=== PATIENT | male | born 1930 | race Caucasian/White ===

== ENCOUNTER 2016-03-08 18:10 | Emergency (ER) | payer MEDICARE, OTHER ==
[~2016-03-08] VITALS: Ht 170.2 cm; Wt 100.9 kg
[~2016-03-08 18:10] MED LIST: ASPIR-LOW81 MG PO; ASPIRIN 32325 MG/TAB PO; ASPIRIN E.C. 8181 MG PO; BACTRIM DS 8001 TAB PO; BETAPACE 80MG80 MG PO; CARBIDOPA/LEVODOPA; CIPRO 500MG TA500 MG PO; COUMADIN 5MG5 MG/TAB PO; COUMADIN2.5 MG PO; COUMADIN5 MG PO; FLOMAX 0.40.4 MG/CAP PO; HCTZ 25MG25 MG PO; IMODIUM 2MG CAPS2 MG PO; KLOR-CON M2020 MEQ PO; LASIX 20MG TABL20 MG PO; LEVAQUIN 5500 MG/TA1 PO; LIPITOR 10MG10 MG PO; LIPITOR 40MG TA40 MG PO; LOPRESSOR 225 MG/TAB PO; MECLIZINE25 MG PO; MIRALAX PA17 GM/Dose PO; NORVASC 10MG10 MG PO; PHENERGAN W/CO120 M1 PO; PHENERGAN W/CO120 ML PO; PRILOSEC 20MG20 MG; PRILOSEC 20MG20 MG PO; SINEMET CR 50 M1 TER PO; TOPROL XL 25MG25 MG PO; TYLENOL 325MG325 MG PO; ULTRAM 50MG TAB50 MG PO; ZOLOFT 50MG50 MG PO
[2016-03-08 18:16] VITALS: TEMP 98
[2016-03-08 19:38] LABS: BASO # 0.1 (0.0-0.2); BASO % 0.7 % (0.0-2.0); EOS # 0.4 (0.0-0.7); EOS % 6.1 % (0-4.0); GRAN # 4.3 (1.4-6.5); GRAN % 64.8 % (42.2-75.2); HEMATOCRIT 42.5 % (42.0-52.0); HEMOGLOBIN 13.8 g/dl (13.5-18.0); LYMPH # 1.4 (1.2-3.4); LYMPH % 20.2 % (20.0-51.0); MEAN CELL VOLUME 87 fl (80.0-100.0); MEAN CORPUSCULAR HEMOGLOBIN 28 pg (27.0-31.0); MEAN CORPUSCULAR HGB CONC 33 g/dl (33.0-37.0); MEAN PLATELET VOLUME 10.9 fl (7.4-10.4); MONO # 0.5 (0.1-0.6); MONO % 7.8 % (1.7-9.3); PLATELET COUNT 227 K/mm3 (130-400); RED BLOOD COUNT 4.87 M/mm3 (4.20-5.60); REDCELL DISTRIBUTION WIDTH-CV 14.6 % (11.5-14.5); WHITE BLOOD COUNT 6.7 K/mm3 (4.8-10.8)
[2016-03-08 19:48] LABS: ALBUMIN 4.5 gm/dL (3.5-5.0); BILIRUBIN,TOTAL 0.7 mg/dL (0.0-1.0); CALCIUM 9.4 mg/dL (8.4-10.2); CREATININE, serum 1.77 mg/dL (0.66-1.25); POTASSIUM 3.6 mmol/L (3.4-5.0); TOTAL PROTEIN 7.8 gm/dL (6.4-8.2)
[2016-03-08 20:18] VITALS: BP 131/57; PULSE 87
== END 2016-03-08 20:19 | disposition home or self-care (01) ==
LOC: COL.ER 18:10
PROVIDERS: Emergency Medicine
DX: L29.9 Pruritus, unspecified (principal); I10 Essential (primary) hypertension

== ENCOUNTER 2016-11-07 12:03 | Emergency (ER) | payer MEDICARE, OTHER ==
[~2016-11-07] VITALS: Ht 170.2 cm; Wt 93.2 kg
[2016-11-07 12:05] VITALS: TEMP 98.4
[2016-11-07 12:58] LABS: BASO % 0.5 % (0.0-2.0); EOS # 0.4 (0.0-0.7); EOS % 5.8 % (0-4.0); GRAN # 4.7 (1.4-6.5); GRAN % 73.1 % (42.2-75.2); HEMATOCRIT 39.1 % (42.0-52.0); HEMOGLOBIN 12.9 g/dl (13.5-18.0); LYMPH # 0.8 (1.2-3.4); LYMPH % 12.6 % (20.0-51.0); MEAN CELL VOLUME 89 fl (80.0-100.0); MEAN CORPUSCULAR HEMOGLOBIN 29 pg (27.0-31.0); MEAN CORPUSCULAR HGB CONC 33 g/dl (33.0-37.0); MEAN PLATELET VOLUME 10.8 fl (7.4-10.4); MONO # 0.5 (0.1-0.6); MONO % 7.5 % (1.7-9.3); PLATELET COUNT 173 K/mm3 (130-400); REDCELL DISTRIBUTION WIDTH-CV 13.3 % (11.5-14.5); WHITE BLOOD COUNT 6.4 K/mm3 (4.8-10.8)
[2016-11-07] MEDS ORDERED: RYTARY1 CE2 PO (13:05)
[2016-11-07] MEDS ORDERED: CIPRO 500MG TA500 MG PO (13:08)
[2016-11-07] MEDS ORDERED: TYLENOL PM EXTR1 TA1 PO (13:10)
[2016-11-07 13:11] LABS: INR 1.1 (0.8-3.0); PROTHROMBIN TIME 12.1 SECONDS (9.7-12.8)
[2016-11-07] MEDS ORDERED: COLACE 100100 MG/CAP PO (13:11)
[2016-11-07 13:12] LABS: ALBUMIN 3.7 gm/dL (3.5-5.0); BILIRUBIN,TOTAL 0.7 mg/dL (0.0-1.0); C-REACTIVE PROTEIN 4.8 mg/dL (0.0-0.9); CALCIUM 8.8 mg/dL (8.4-10.2); CREATININE, serum 1.64 mg/dL (0.66-1.25); POTASSIUM 3.4 mmol/L (3.4-5.0); TOTAL PROTEIN 6.8 gm/dL (6.4-8.2)
[2016-11-07] MEDS ORDERED: NEURONTIN100 MG/CAP PO (13:12)
[2016-11-07] MEDS ORDERED: KLOR-CON M2020 MEQ PO (13:13)
[2016-11-07 13:14] LABS: PARTIAL THROMBOPLASTIN TIME 30.8 SECONDS (26.0-37.0)
[2016-11-07] MEDS ORDERED: MOBIC15 MG PO (13:14)
[2016-11-07] MEDS ORDERED: FLOMAX 0.40.4 MG/CAP PO (13:15)
[2016-11-07] MEDS ORDERED: LEVITRA10 MG PO (13:16)
[2016-11-07 13:20] LABS: TROPONIN-I 0.019 ng/mL (0.000-0.034)
[2016-11-07] MEDS ORDERED: ZITHROMAX 250M250 MG PO (13:43)
[2016-11-07] MEDS ORDERED: PREDNISONE20 MG PO (13:43)
[2016-11-07 13:54] VITALS: BP 122/73; PULSE 83
== END 2016-11-07 14:04 | disposition home or self-care (01) ==
LOC: COL.ER 12:03
PROVIDERS: Emergency Medicine
DX: J45.909 Unspecified asthma, uncomplicated (principal); I48.91 Unspecified atrial fibrillation; I11.0 Hypertensive heart disease with heart failure; I50.9 Heart failure, unspecified; I25.10 Atherosclerotic heart disease of native coronary artery without angina pectoris; E78.5 Hyperlipidemia, unspecified; G20 Parkinson's disease; N40.0 Benign prostatic hyperplasia without lower urinary tract symptoms; Z95.5 Presence of coronary angioplasty implant and graft; Z87.820 Personal history of traumatic brain injury; Z79.82 Long term (current) use of aspirin
CPT/HCPCS: J7512

== ENCOUNTER 2019-03-25 12:19 | Inpatient (IN) | payer MEDICARE, OTHER ==
[~2019-03-25] VITALS: Ht 167.6 cm; Wt 89.6 kg
[~2019-03-25 12:19] MED LIST changes: +COLACE 100100 MG/CAP PO; +LEVITRA10 MG PO; +MOBIC15 MG PO; +NEURONTIN100 MG/CAP PO; +PREDNISONE20 MG PO; +RYTARY1 CE2 PO; +TYLENOL PM EXTR1 TA1 PO; +ZITHROMAX 250M250 MG PO
[2019-03-25 13:35] LABS: BASO % 0.3 % (0.0-2.0); EOS # 0.4 (0.0-0.7); EOS % 3.2 % (0-4.0); GRAN # 9.1 (1.4-6.5); GRAN % 82.9 % (42.2-75.2); HEMOGLOBIN 11.8 g/dl (13.5-18.0); LYMPH # 0.8 (1.2-3.4); LYMPH % 7.2 % (20.0-51.0); MEAN CELL VOLUME 93 fl (80.0-100.0); MEAN CORPUSCULAR HEMOGLOBIN 29 pg (27.0-31.0); MEAN CORPUSCULAR HGB CONC 31 g/dl (33.0-37.0); MEAN PLATELET VOLUME 10.9 fl (7.4-10.4); MONO # 0.7 (0.1-0.6); MONO % 6.1 % (1.7-9.3); PLATELET COUNT 183 K/mm3 (130-400); RED BLOOD COUNT 4.11 M/mm3 (4.20-5.60); REDCELL DISTRIBUTION WIDTH-CV 13.7 % (11.5-14.5)
[2019-03-25 13:40] LABS: INR 1.1 (0.8-3.0); PROTHROMBIN TIME 12.3 SECONDS (9.7-12.8)
[2019-03-25 13:42] LABS: PARTIAL THROMBOPLASTIN TIME 34.8 SECONDS (26.0-37.0)
[2019-03-25 13:45] LABS: ALBUMIN 3.9 gm/dL (3.5-5.0); BILIRUBIN,TOTAL 0.8 mg/dL (0.0-1.0); CALCIUM 8.9 mg/dL (8.4-10.2); CREATININE, serum 1.59 (0.66-1.25); TOTAL PROTEIN 6.8 gm/dL (6.4-8.2)
[2019-03-25] MEDS ORDERED: NEURONTIN300 MG/CAP PO (17:17)
[2019-03-25] MEDS ORDERED: PROAIR HFA0.09 MG/AC IH (17:18)
[2019-03-25 17:20] VITALS: BP 126/60; PULSE 78; TEMP 97.7
[2019-03-25] MEDS ORDERED: MYRBETR25MG PO (17:21)
[2019-03-25] MEDS ORDERED: WESTCORT 0.2% C15 GM TP (17:21)
[2019-03-25] MEDS ORDERED: TOPAMAX50 MG PO (17:25)
[2019-03-25] MEDS ORDERED: ULTRAM 50MG TAB50 MG PO (17:26)
[2019-03-25 20:00] VITALS: BP 111/60; PULSE 90; TEMP 97.5
[2019-03-25 23:23] VITALS: BP 130/87; PULSE 81; TEMP 98
[2019-03-26] VITALS (10 sets, daily range): BP systolic 96–118; BP diastolic 48–83; PULSE 85–103; TEMP 97–98.4
[2019-03-26 06:38] LABS: BASO % 0.3 % (0.0-2.0); EOS # 0.7 (0.0-0.7); EOS % 6.9 % (0-4.0); GRAN # 7.8 (1.4-6.5); GRAN % 80.1 % (42.2-75.2); HEMOGLOBIN 10.7 g/dl (13.5-18.0); LYMPH # 0.7 (1.2-3.4); LYMPH % 7.4 % (20.0-51.0); MEAN CELL VOLUME 92 fl (80.0-100.0); MEAN CORPUSCULAR HEMOGLOBIN 29 pg (27.0-31.0); MEAN CORPUSCULAR HGB CONC 32 g/dl (33.0-37.0); MEAN PLATELET VOLUME 11.7 fl (7.4-10.4); MONO # 0.5 (0.1-0.6); PLATELET COUNT 153 K/mm3 (130-400); RED BLOOD COUNT 3.66 M/mm3 (4.20-5.60); REDCELL DISTRIBUTION WIDTH-CV 13.5 % (11.5-14.5)
[2019-03-26 06:47] LABS: HEMATOCRIT 33.7 % (42.0-52.0)
[2019-03-26 06:53] LABS: CALCIUM 8.4 mg/dL (8.4-10.2); CREATININE, serum 1.52 (0.66-1.25); POTASSIUM 3.9 mmol/L (3.4-5.0)
[2019-03-27] VITALS (7 sets, daily range): BP systolic 108–117; BP diastolic 47–82; PULSE 82–94; TEMP 97.6–98.8
[2019-03-27 07:08] LABS: HEMATOCRIT 27.2 % (42.0-52.0); HEMOGLOBIN 8.5 g/dl (13.5-18.0)
[2019-03-27 07:17] LABS: CALCIUM 8.1 mg/dL (8.4-10.2); CREATININE, serum 1.38 (0.66-1.25)
[2019-03-28 04:46] VITALS: BP 96/42; PULSE 83; TEMP 98.8
[2019-03-28 04:50] VITALS: BP 101/42
[2019-03-28 07:23] VITALS: BP 120/68; PULSE 89; TEMP 98.2
[2019-03-28 07:40] LABS: BASO % 0.4 % (0.0-2.0); EOS # 0.6 (0.0-0.7); EOS % 7.2 % (0-4.0); GRAN % 71.2 % (42.2-75.2); LYMPH # 1.2 (1.2-3.4); LYMPH % 13.8 % (20.0-51.0); MEAN CELL VOLUME 90 fl (80.0-100.0); MEAN CORPUSCULAR HGB CONC 32 g/dl (33.0-37.0); MEAN PLATELET VOLUME 12.1 fl (7.4-10.4); MONO # 0.6 (0.1-0.6); MONO % 6.7 % (1.7-9.3); PLATELET COUNT 127 K/mm3 (130-400); RED BLOOD COUNT 2.72 M/mm3 (4.20-5.60); REDCELL DISTRIBUTION WIDTH-CV 13.6 % (11.5-14.5)
[2019-03-28 07:54] LABS: HEMATOCRIT 24.5 % (42.0-52.0); HEMOGLOBIN 7.8 g/dl (13.5-18.0); MEAN CORPUSCULAR HEMOGLOBIN 29 pg (27.0-31.0)
[2019-03-28 07:57] LABS: CALCIUM 8.1 mg/dL (8.4-10.2); CREATININE, serum 1.38 (0.66-1.25); POTASSIUM 3.5 mmol/L (3.4-5.0)
[2019-03-28] MEDS ORDERED: FERRO-TIME325 MG PO (10:13)
[2019-03-28] MEDS ORDERED: NORCO 325 MG-51 TAB PO (10:14)
[2019-03-28] MEDS ORDERED: DUO-KAPS1 CAP PO (10:16)
[2019-03-28] MEDS ORDERED: VITAMIN C500 MG PO (10:16)
[2019-03-28] MEDS ORDERED: OSCAL 500 TAB500 MG PO (10:17)
[2019-03-28 10:46] VITALS: BP 120/68; PULSE 89; TEMP 98.2
== END 2019-03-28 11:52 | DRG 470 ==
LOC: COL.ER 12:19 → SURG 15:20
PROVIDERS: Emergency Medicine; Orthopaedic Surgery; Physician Assistant; ADMIT Student in an Organized Health Care Education/Training Program
PROC: 0SR90JZ Replacement of Right Hip Joint with Synthetic Substitute, Open Approach (ICD-10-PCS; principal; 2019-03-26 10:00)
DX: S72.001A Fracture of unspecified part of neck of right femur, initial encounter for closed fracture (principal); Z96.653 Presence of artificial knee joint, bilateral; E78.5 Hyperlipidemia, unspecified; I48.91 Unspecified atrial fibrillation; I25.10 Atherosclerotic heart disease of native coronary artery without angina pectoris; I12.9 Hypertensive chronic kidney disease with stage 1 through stage 4 chronic kidney disease, or unspecified chronic kidney disease; N18.9 Chronic kidney disease, unspecified; G20 Parkinson's disease; K21.9 Gastro-esophageal reflux disease without esophagitis; M19.90 Unspecified osteoarthritis, unspecified site; D64.9 Anemia, unspecified; Z87.01 Personal history of pneumonia (recurrent); Z95.1 Presence of aortocoronary bypass graft; Z90.49 Acquired absence of other specified parts of digestive tract; Z90.89 Acquired absence of other organs; Z86.73 Personal history of transient ischemic attack (TIA), and cerebral infarction without residual deficits; Z79.82 Long term (current) use of aspirin
CPT/HCPCS: 99223-AI; 99232-AI; 99239; A9284; C1776; J0690; J1100; J2250; J2270; J2370; J2704; J2795; J3010